=== PATIENT | female | born 1930 | race Caucasian/White ===

== ENCOUNTER 2017-05-25 09:53 | Outpatient (CLI) | payer MEDICARE, BC ==
[~2017-05-25] VITALS: Ht 165.2 cm; Wt 71.3 kg
[2017-05-25] VITALS (9 sets, daily range): BP systolic 93–132; BP diastolic 60–89; PULSE 60–66
[~2017-05-25 09:53] MED LIST: ASPIRIN 81M81 MG/TA2 PO; CORDARONE200 MG/TAB PO; LASIX 40MG TABL40 MG PO; LIPITOR 10MG10 MG PO; LOPRESSOR 550 MG/TAB PO; MAG-OX 400400 MG/TAB PO; NITROSTAT0.4 MG/TAB SL; PLAVIX 75MG TAB75 MG PO; SYNTHROID 0.0.025 MG PO; TYLENOL W/COD1 UDTAB PO; ULTRAM 50MG TAB50 MG PO; ZOFRAN 4MG T4 MG/TAB PO
[2017-05-25] MEDS ORDERED: ENEMEEZ PLUS MIN5 ML RC (10:53)
[2017-05-25] MEDS ORDERED: FENTANYL 50MCG TD (10:57)
[2017-05-25] MEDS ORDERED: NORCO 325 MG-51 TAB PO (10:58)
[2017-05-25] MEDS ORDERED: CORDARONE200 MG/TAB PO (10:59)
[2017-05-25] MEDS ORDERED: LASIX 20MG TABL20 MG PO (10:59)
[2017-05-25] MEDS ORDERED: COLACE 100100 MG/CAP PO (11:01)
== END 2017-05-25 16:34 | disposition home or self-care (01) ==
LOC: COL.CAR 09:53
DX: M48.56XA Collapsed vertebra, not elsewhere classified, lumbar region, initial encounter for fracture (principal); I25.2 Old myocardial infarction
CPT/HCPCS: C1713; J2250; J3010; J7120